=== PATIENT | male | born 1975 | race Caucasian/White ===

== ENCOUNTER 2018-12-22 09:15 | Emergency (ER) | payer OTHER ==
[2018-12-22 09:24] VITALS: BP 157/99; PULSE 92; RESP 18; TEMP 98.1; O2SAT 98; BMI 29.1
--- NOTE | 2018-12-22 10:17 | ED PDOC ---
Arrival/HPI - General Chief Complaint: Eye Problem Time Seen by Provider: 12/22/18 09:25 Historian: Patient - History of Present Illness Narrative History of Present Illness (Text): 12/22/18 10:09 43yr old male presents today with right upper eyelid pain and swelling. Patient states yesterday he noticed some pain to the upper eyelid. Patient states when he woke up this morning the upper eyelid was swollen. Patient states that the eyelid has decreased in size but he still has a slight pain over the mid to lateral aspect of the upper eyelid. No fevers or chills. No blurred vision. No headaches dizziness or weakness. No other complaints. Past Medical History - Provider Review Nursing Documentation Reviewed: Yes - Travel History Have you recently traveled outside [place] w/in the past 3 mons?: No - Cardiac Hx Cardiac Disorders: Yes Hx Hypertension: Yes - Pulmonary Hx Respiratory Disorders: No - Neurological Hx Neurological Disorder: No - HEENT Hx HEENT Disorder: No - Renal Hx Renal Disorder: No - Endocrine/Metabolic Hx Endocrine Disorders: No - Hematological/Oncological Hx Blood Disorders: No - Integumentary Hx Dermatological Disorder: No - Musculoskeletal/Rheumatological Hx Musculoskeletal Disorders: No - Gastrointestinal Hx Gastrointestinal Disorders: Yes Hx Gall Bladder Disease: Yes - Genitourinary/Gynecological Hx Genitourinary Disorders: No - Psychiatric Hx Psychophysiologic Disorder: No Hx Substance Use: No - Surgical History Hx Cholecystectomy: Yes - Anesthesia Hx Anesthesia Reactions: No Family/Social History - Physician Review Nursing Documentation Reviewed: Yes Family/Social History: Unknown Family HX Smoking Status: Heavy Smoker > 10 Cigarettes Daily Hx Alcohol Use: No Hx Substance Use: No Allergies/Home Meds Allergies/Adverse Reactions: Allergies No Known Allergies Allergy (Verified 01/16/16 03:07) Home Medications: Home Meds Medication Instructions Recorded Confirmed Enalapril Maleate [Vasotec] 10 mg PO DAILY 09/12/15 01/16/16 Review of Systems - Review of Systems Constitutional: absent: Fatigue, Fevers Eyes: Other (upper eyelid swelling). absent: Vision Changes, Photophobia ENT: absent: Sore Throat, Sinus Congestion Respiratory: absent: SOB, Cough Cardiovascular: absent: Chest Pain, Palpitations Gastrointestinal: absent: Abdominal Pain, Nausea, Vomiting Genitourinary Male: absent: Dysuria Musculoskeletal: absent: Arthralgias Skin: absent: Rash, Pruritis Neurological: absent: Headache, Dizziness Psychiatric: absent: Anxiety, Depression Physical Exam Vital Signs Reviewed: Yes Vital Signs Temp Pulse Resp BP Pulse Ox 12/22/18 09:23 98.1 F 92 H 18 157/99 H 98 Temperature: Afebrile Blood Pressure: Hypertensive Pulse: Regular Respiratory Rate: Normal Appearance: Positive for: Well-Appearing, Non-Toxic, Comfortable Pain Distress: None Mental Status: Positive for: Alert and Oriented X 3 - Systems Exam Head: Present: Atraumatic, Swelling (There is minimal swelling to right upper eye lid; + ttp over mid upper eyelid) Pupils: Present: PERRL Extroacular Muscles: Present: EOMI. No: Entrapment Conjunctiva: Present: Normal. No: Injected Mouth: Present: Moist Mucous Membranes Neck: Present: Normal Range of Motion Respiratory/Chest: Present: Clear to Auscultation, Good Air Exchange. No: Respiratory Distress, Accessory Muscle Use Cardiovascular: Present: Regular Rate and Rhythm, Normal S1, S2. No: Murmurs Skin: Present: Warm, Dry Psychiatric: Present: Alert, Oriented x 3 Medical Decision Making ED Course and Treatment: 12/22/18 10:22 Patient is nontoxic well appearing in no distress Patient with minimal swelling to the right upper eyelid with tenderness over the middle aspect of the upper eyelid. No conjunctival injection noted, PERRLA, extraocular muscles intact patient was advised to apply antibiotic ointment 3 times daily and apply warm compresses frequently. pt was advised to f/u with the eye doctor within the next 2 days. Impression: Hordeolum Tobrex: Apply to the affected eye 4 times daily Followup with the eye doctor within the next 2 days Warm compresses frequently Follow up with the primary care physician within the next 2 days Return immediately if symptoms worsen persist or if new symptoms develop; blurry vision, worsening eye pain, worsening redness or any other concerning symptoms develop. Disposition/Present on Arrival - Present on Arrival Any Indicators Present on Arrival: No History of DVT/PE: No History of Uncontrolled Diabetes: No Urinary Catheter: No History of Decub. Ulcer: No History Surgical Site Infection Following: None - Disposition Have Diagnosis and Disposition been Completed?: Yes Diagnosis: Hordeolum externum (stye) Disposition: HOME/ ROUTINE Disposition Time: 10:17 Patient Plan: Discharge Condition: GOOD Discharge Instructions (ExitCare): Stye (Hordeolum) Additional Instructions: Tobrex: Apply to the affected eye 3 times daily Followup with the eye doctor within the next 2 days Warm compresses frequently Follow up with the primary care physician within the next 2 days Return immediately if symptoms worsen persist or if new symptoms develop; blurry vision, worsening eye pain, worsening redness or any other concerning symptoms develop. Prescriptions: Tobramycin 0.3% [Tobrex 0.3% Ophth Oint] 1 appl OS TID #1 tube Referrals: Lucila Jenkins MD [Medical Doctor] - Follow up with primary Villa Contreras MD [Staff Provider] - Follow up with primary [facility] [Outside] - Follow up with primary Forms: [employer] (Chinese), WORK NOTE
== END 2018-12-22 10:45 | disposition home or self-care (01) ==
LOC: ED 09:15
DX: H00.011 Hordeolum externum right upper eyelid (principal)